=== PATIENT | male | born 1955 | race Caucasian/White ===

== ENCOUNTER 2019-02-22 18:55 | Emergency (ER) | payer OTHER ==
[2019-02-22] MEDS ORDERED: DIPH,PERTUSS(ACELL),TET VAC/PF 0.5 ML DISP.SYRIN IM ONE (19:15)
[2019-02-22] MEDS ORDERED: CEPHALEXIN 250 MG CAPSULE PO ONE (19:18)
--- NOTE | 2019-02-22 19:24 | ED Physician Documentation ---
General Adult - HISTORIAN Historian: patient - HPI Stated Complaint: Laceration to left hand Chief Complaint: General Adult Onset: minutes Timing: still present Severity: mild Further Comments: yes (Pt is a 64 yo male with superficial lacerations/skin tear to the fingers of his L hand--index and small fingers. Pt was sitting with a small child on a swing and fell backwards. He grabbed the chain of the swing to keep the child from falling and tore the skin of his L hand. Tetanus is not utd.) - ROS CONST: no problems EYES/ENT: none CVS/RESP: none GI/: none MS/SKIN/LYMPH: other (skin tears L hand) - PAST HX Past History: none Allergies/Adverse Reactions: Allergies Allergy/AdvReac Type Severity Reaction Status Date / Time No Known Allergies Allergy Verified 02/22/19 19:20 Home Medications: Ambulatory Orders Medication Instructions Recorded Cephalexin [Keflex] 500 mg PO Q12H #10 capsule 02/22/19 NK 02/22/19 - SOCIAL HX Smoking History: non-smoker - FAMILY HX Family History: No - VITAL SIGNS Vital Signs: Vital Signs Temp Pulse Resp BP Pulse Ox 97.9 F 101 H 18 164/87 96 02/22/19 18:55 02/22/19 18:55 02/22/19 18:55 02/22/19 18:55 02/22/19 18:55 - REVIEWED ASSESSMENTS Nursing Assessment Reviewed: Yes Vitals Reviewed: Yes Progress - Progress Progress: steri-strips to skin tears of L hand Hibiclens Tdap 0.5 ml IM dressing Rx Keflex 500 mg po bid x 5 days, 1st dose in ER ED Results Lab/Radiology - Orders Orders: ED Orders Category Date Time Status Cephalexin [Keflex] Med 02/22/19 19:18 Discontinued 500 mg PO NOW ONE Diph,Pertuss(Acell),Tet Vac/Pf [Adacel] Med 02/22/19 19:15 Discontinued 0.5 ml IM .ONCE ONE General Adult Physical Exam - PHYSICAL EXAM GENERAL APPEARANCE: no distress NECK: normal inspection, supple RESPIRATORY: no resp distress, chest non-tender, breath sounds normal CVS: reg rate & rhythm, heart sounds normal BACK: normal inspection SKIN: other (superficial skin tear to 2nd and 5th digits of L hand.) EXTREMITIES: normal range of motion, other (superficial skin tear to 2nd and 5th digits of L hand.) NEURO: oriented X3, motor nml, sensation nml Discharge Clincal Impression: skin tears L hand Prescriptions: Cephalexin [Keflex] 500 mg PO Q12H #10 capsule Referrals: Zahida Malcolm FNP [Primary Care Provider] - Condition: Stable Disposition: 01 HOME, SELF-CARE Decision to Admit: NO Decision Time: 19:33
[2019-02-22 20:16] VITALS: BP 138/78
== END 2019-02-22 20:17 | disposition home or self-care (01) ==
LOC: ED 18:55
DX: S61.211A Laceration without foreign body of left index finger without damage to nail, initial encounter (principal); S61.217A Laceration without foreign body of left little finger without damage to nail, initial encounter; W09.1XXA Fall from playground swing, initial encounter
CPT/HCPCS: 90471; 90715; 99284; J7030